=== PATIENT | female | born 1940 | race Caucasian/White ===

== ENCOUNTER → 2018-01-04 | Outpatient (CLI) | payer OTHER ==
[~2018-01-04] MED LIST: Ativan PO; Ecotrin PO; Feosol PO; Hydrodiuril,Oretic,E PO; Mirapex PO; Percocet 5/325,Endoc PO; Senokot S,Pericolace PO; Xalatan 0.005% Ophth BOTH EYES; Zestril,Prinivil PO; celeBREX PO
== END | disposition home or self-care (01) ==
LOC: EKG 11-30 10:00
DX: Z01.810 Encounter for preprocedural cardiovascular examination (principal); I45.4 Nonspecific intraventricular block; R94.31 Abnormal electrocardiogram [ECG] [EKG]
CPT/HCPCS: 93005